=== PATIENT | male | born 1925 | race Caucasian/White ===

== ENCOUNTER → 2016-07-15 | Outpatient (CLI) | payer MEDICARE, OTHER ==
[~2016-07-15] MED LIST: INSUINJ32 SC; PROMACTA12.5 MG PO
[2016-07-15 07:45] VITALS: BP 118/68
[2016-07-15 08:20] VITALS: BP 99/66
== END | disposition home or self-care (01) ==
LOC: CHF HDHVI 07:40
PROVIDERS: ATTEND Internal Medicine Cardiovascular Disease
DX: C85.80 Other specified types of non-Hodgkin lymphoma, unspecified site (principal)
CPT/HCPCS: 96374; G0463; J1642

== ENCOUNTER → 2016-08-15 | Outpatient (CLI) | payer OTHER ==
[2016-08-15 07:45] VITALS: BP 120/75
[2016-08-15 08:15] VITALS: BP 111/72
== END | disposition home or self-care (01) ==
LOC: CHF HDHVI 07:47
PROVIDERS: ATTEND Internal Medicine Cardiovascular Disease
DX: I11.0 Hypertensive heart disease with heart failure (principal); I50.9 Heart failure, unspecified; I25.10 Atherosclerotic heart disease of native coronary artery without angina pectoris; C85.90 Non-Hodgkin lymphoma, unspecified, unspecified site; D64.9 Anemia, unspecified
CPT/HCPCS: 96374; G0463; J1642